=== PATIENT | female | born 1980 | race Caucasian/White ===

== ENCOUNTER → 2022-12-27 | Outpatient (CLI) | payer OTHER ==
[~2022-12-27] MED LIST: ATEN25TA; EQL50TAB2 PO; ERGO500029; FERR325T19; FURO20TA2; METH4PACK; OMEP40CA5; TRIA1CR80; [UNRECOGNIZED DRUG - CODE] IV
== END ==
LOC: M WHC 09:02
PROVIDERS: ATTEND Nurse Practitioner
DX: N83.202 Unspecified ovarian cyst, left side (principal)